=== PATIENT | female | born 1925 | race Caucasian/White ===

== ENCOUNTER 2016-09-20 14:47 | Inpatient (IN) | payer MEDICARE, OTHER ==
[~2016-09-20] VITALS: Ht 152.4 cm; Wt 44.0 kg
[2016-09-20] MEDS ORDERED: IV NS 0.9% 1,000 ML BAG IV ONE (15:00)
[2016-09-20] MEDS ORDERED: IV NS 0.9% 2,000 ML ONE (15:00)
[2016-09-20] MEDS ORDERED: IV SET PRIMARY PUMP SET 1 EA INFUS.SET MC ONE ×3 (15:00→21:34)
[2016-09-20 15:21] LABS: BASOPHILS # (AUTO) 0.2 /CMM (0.0-0.2); BASOPHILS % (AUTO) 1.8 % (0.0-2.0); DIFF TOTAL % 100 %; EOSINOPHILS # (AUTO) 0.5 /CMM (0.0-0.7); EOSINOPHILS % (AUTO) 3.9 % (0.0-6.0); HEMATOCRIT 42 % (33-45); HEMOGLOBIN 14.2 g/dL (11.5-14.8); LYMPHOCYTES # (AUTO) 2.4 /CMM (0.8-4.8); LYMPHOCYTES % (AUTO) 17.6 % (20.0-44.0); MEAN CORPUSCULAR HEMOGLOBIN 31 PG (26.0-33.0); MEAN CORPUSCULAR HGB CONC 34 g/dl (31.0-36.0); MEAN CORPUSCULAR VOLUME 91 fL (82-100); MONOCYTES # (AUTO) 0.7 /CMM (0.1-1.30); MONOCYTES % (AUTO) 4.8 % (2.0-12.0); NEUTROPHILS % (AUTO) 71.9 % (43.0-81.0); PLATELET COUNT (AUTO) 455 /CMM (150-450); RED BLOOD CELL COUNT(AUTO) 4.64 MIL/uL (4.0-5.2); WHITE BLOOD COUNT (AUTO) 13.8 K/uL (4.3-11.0)
[2016-09-20 15:33] LABS: ANION GAP 16 (5-14); CARBON DIOXIDE 30 mmol/L (21-32); CHLORIDE 98 mmol/L (98-107); GLUCOSE 104 mg/dL (74-106); POTASSIUM 4.3 mmol/L (3.5-5.1); SODIUM SERUM 139 mmol/L (136-145); UREA NITROGEN, BLOOD 28 mg/dL (7-18)
[2016-09-20 15:36] LABS: INR 0.97 (0.87-1.13); PROTHROMBIN TIME 10.2 SECS (9.5-12.7)
[2016-09-20 15:39] LABS: ALANINE AMINOTRANSFERASE 22 U/L (12-78); ALBUMIN 3.8 g/dL (3.4-5.0); ASPARTATE AMINOTRANSFERASE 25 U/L (15-37); BILIRUBIN,DIRECT 0.1 mg/dL (0.0-0.2); BILIRUBIN,TOTAL 0.3 mg/dL (0.2-1.0); INDIRECT BILIRUBIN 0.2 mg/dL (0.0-1.1); TOTAL PROTEIN, SERUM 8.2 g/dL (6.4-8.2)
[2016-09-20 15:47] LABS: TROPONIN I < 0.017 ng/mL (0.00-0.056)
[2016-09-20 15:52] LABS: ADD UA MICROSCOPIC NO; KETONES,URINE Negative (NEGATIVE); LEUKOCYTE ESTERASE ,URINE Negative (NEGATIVE)
[2016-09-20 16:09] LABS: LACTIC ACID 3.5 mmol/L (0.4-2.0)
[2016-09-20 16:17] LABS: *LACTIC ACID REFLEX FLAG YES
[2016-09-20] MEDS ORDERED: PIPERACILLIN /TAZOBACTAM 3.375 G in IV D5W 50 ML IV ONE (16:30)
[2016-09-20] MEDS ORDERED: VANCOMYCIN 1 GM in IV D5W 250 ML IV ONE (16:30)
[2016-09-20] MEDS ORDERED: SIMV20TA2 PO (16:38)
[2016-09-20] MEDS ORDERED: CRAN425C PO (16:38)
[2016-09-20] MEDS ORDERED: FENO145T PO (16:38)
[2016-09-20] MEDS ORDERED: MULT1TAB11 PO (16:38)
[2016-09-20] MEDS ORDERED: CALC-167 PO (16:38)
[2016-09-20] MEDS ORDERED: METF-835 PO (16:38)
[2016-09-20] MEDS ORDERED: ALEN70TA3 PO (16:44)
[2016-09-20] MEDS ORDERED: GLIP10TA11 PO (16:44)
[2016-09-20] MEDS ORDERED: LISI-607 PO (16:44)
[2016-09-20] MEDS ORDERED: AMIN30LI25 PO (16:44)
[2016-09-20] MEDS ORDERED: LIDO30AD10 TP (16:44)
[2016-09-20] MEDS ORDERED: FURO-145 PO (16:44)
[2016-09-20] MEDS ORDERED: INSU100V10 SQ (16:46)
[2016-09-20] MEDS ORDERED: GLUC1VIA IM (16:56)
[2016-09-20] MEDS ORDERED: ACET325T53 PO (16:56)
[2016-09-20] MEDS ORDERED: ACET-2030 PO (16:56)
[2016-09-20] MEDS ORDERED: ACET-73 PO (16:56)
[2016-09-20] MEDS ORDERED: CRAN3875 PO (16:56)
[2016-09-20] MEDS ORDERED: MAGN400O6 PO (17:03)
[2016-09-20] MEDS ORDERED: DOCU-25 PO (17:03)
[2016-09-20] MEDS ORDERED: ZINC220C6 PO (17:03)
[2016-09-20] MEDS ORDERED: ASCO-340 PO (17:03)
[2016-09-20] MEDS ORDERED: NA P133E RC (17:03)
[2016-09-20] MEDS ORDERED: BISA10SU8 RC (17:03)
[2016-09-20] MEDS ORDERED: MAG HYDROX/AL HYDROX/SIMETH 30 ML UDC PO PRN (19:00)
[2016-09-20] MEDS ORDERED: MAGNESIUM HYDROXIDE 30 ML UDC PO PRN (19:00)
[2016-09-20] MEDS ORDERED: ACETAMINOPHEN 325 MG TABLET PO PRN (19:00)
[2016-09-20] MEDS ORDERED: ONDANSETRON HCL/PF 4 MG/2 ML VIAL IVP PRN (19:00)
[2016-09-20] MEDS ORDERED: ZOLPIDEM TARTRATE 5 MG TABLET PO PRN (19:00)
[2016-09-20] MEDS ORDERED: BISACODYL SUPP (10 MG) 10 MG/SUPP.RECT SUPP.RECT RC PRN (19:00)
[2016-09-20] MEDS ORDERED: Z GUARD REMEDY 2 OZ OINT TP PRN (19:00)
[2016-09-20 20:00] VITALS: BP 145/59
[2016-09-20] MEDS ORDERED: FEE PK DOSING 1 MIN EA MC ONE (20:18)
[2016-09-20] MEDS ORDERED: PIPERACILLIN /TAZOBACTAM 4.5 G in IV D5W 50 ML IV SCH (21:00)
[2016-09-20] MEDS: METRONIDAZOLE 500MG/ NS 100ML 500 MG in PREMIX 1 EA IV SCH (21:30)
[2016-09-20] MEDS ORDERED: SECONDARY IV SET 1 EA INFUS.SET MC ONE (21:34)
[2016-09-20] MEDS: IV 1/2NS 1000 ML 1,000 ML IV PRN (21:37)
[2016-09-20] MEDS: ENOXAPARIN SODIUM 40 MG/0.4 ML DISP.SYRIN SQ SCH (21:39)
[2016-09-20] MEDS: SIMVASTATIN 20 MG TABLET PO SCH (21:44)
[2016-09-20] MEDS ORDERED: DOCUSATE SODIUM 100 MG CAPSULE PO SCH (22:00)
[2016-09-20] MEDS: HYDROCODONE/APAP 5/325MG 1 EACH TABLET PO PRN (22:11)
[2016-09-20] MEDS: PIPERACILLIN /TAZOBACTAM 3.375 G in IV D5W 50 ML IV SCH (22:28)
[2016-09-20] MEDS ORDERED: LIDOCAINE 5% (PATCH) 1 EA PATCH TP ONE (22:35)
[2016-09-20] MEDS: LIDOCAINE 5% (PATCH) 1 EA PATCH TP SCH (22:44)
[2016-09-21] VITALS: BP 120/62
[2016-09-21] MEDS: HYDROCODONE/APAP 5/325MG 1 EACH TABLET PO PRN ×2 (05:18→06:59)
[2016-09-21] MEDS: METRONIDAZOLE 500MG/ NS 100ML 500 MG in PREMIX 1 EA IV SCH ×3 (05:18→21:57)
[2016-09-21] MEDS ORDERED: diphenhydrAMINE HCL/ZINC ACET CREAM 28.3 GM TUBE TP PRN (05:30)
[2016-09-21] MEDS: PIPERACILLIN /TAZOBACTAM 3.375 G in IV D5W 50 ML IV SCH ×3 (06:23→17:02)
[2016-09-21 06:59] VITALS: BP 141/63
[2016-09-21 07:56] LABS: BASOPHILS % (AUTO) 0.2 % (0.0-2.0); DIFF TOTAL % 100 %; EOSINOPHILS # (AUTO) 0.3 /CMM (0.0-0.7); EOSINOPHILS % (AUTO) 2.5 % (0.0-6.0); HEMATOCRIT 32 % (33-45); HEMOGLOBIN 10.6 g/dL (11.5-14.8); LYMPHOCYTES # (AUTO) 2.1 /CMM (0.8-4.8); LYMPHOCYTES % (AUTO) 16.6 % (20.0-44.0); MEAN CORPUSCULAR HEMOGLOBIN 31 PG (26.0-33.0); MEAN CORPUSCULAR HGB CONC 33 g/dl (31.0-36.0); MEAN CORPUSCULAR VOLUME 93 fL (82-100); MONOCYTES # (AUTO) 1.1 /CMM (0.1-1.30); MONOCYTES % (AUTO) 8.7 % (2.0-12.0); NEUTROPHILS # (AUTO) 9.3 /CMM (1.8-8.9); PLATELET COUNT (AUTO) 383 /CMM (150-450); RED BLOOD CELL COUNT(AUTO) 3.43 MIL/uL (4.0-5.2); WHITE BLOOD COUNT (AUTO) 12.9 K/uL (4.3-11.0)
[2016-09-21 08:00] VITALS: BP 141/63
[2016-09-21 08:05] LABS: CALCIUM, SERUM 8.4 mg/dL (8.5-10.1); PHOSPHORUS 3.5 mg/dL (2.5-4.9); POTASSIUM 3.9 mmol/L (3.5-5.1)
[2016-09-21] MEDS: ZINC SULFATE 220 MG CAPSULE PO SCH (08:18)
[2016-09-21] MEDS: METFORMIN 500 MG TABLET PO SCH ×2 (08:19→17:02)
[2016-09-21] MEDS: FENOFIBRATE NANOCRYS (145 MG) 145 MG TABLET PO SCH (08:19)
[2016-09-21] MEDS: LISINOPRIL (5MG) 5 MG TABLET PO SCH (08:19)
[2016-09-21] MEDS: PANTOPRAZOLE 40 MG TABLET.DR PO SCH (08:19)
[2016-09-21] MEDS: LIDOCAINE 5% (PATCH) 1 EA PATCH TP SCH (08:26)
[2016-09-21 09:07] LABS: THYROID STIMULATING HORMONE 1.294 uIU/mL (0.358-3.74)
[2016-09-21] MEDS ORDERED: SECONDARY IV SET 1 EA INFUS.SET MC ONE (10:04)
[2016-09-21] MEDS ORDERED: VANCOMYCIN 1 GM in IV D5W 250 ML IV SCH (11:00)
[2016-09-21 11:54] LABS: IRON, SERUM 35 ug/dl (50-175); PERCENT SATURATION 15 % (14-33); TOTAL IRON BINDING CAPACITY 232 ug/dl (250-450)
[2016-09-21 12:01] LABS: TROPONIN I < 0.017 ng/mL (0.00-0.056)
[2016-09-21] MEDS: ASPIRIN 81 MG TAB.CHEW PO SCH (12:04)
[2016-09-21] MEDS: CARVEDILOL 6.25 MG TABLET PO SCH ×2 (12:05→22:02)
[2016-09-21] MEDS ORDERED: IV SET PRIMARY PUMP SET 1 EA INFUS.SET MC ONE (12:25)
[2016-09-21] MEDS: Magnesium 1GM/D5W 100ML PREMIX 100 ML IV SCH ×4 (12:29→15:29)
[2016-09-21] MEDS ORDERED: GUAIFENESIN LA 600 MG TABLET.SA PO PRN (15:30)
[2016-09-21 16:00] VITALS: BP 119/53
[2016-09-21] MEDS ORDERED: DEXTROSE 50%-WATER 50 ML DISP.SYRIN IV PRN (17:00)
[2016-09-21] MEDS ORDERED: INSULIN REGULAR, HUMAN 100 UNIT/ML 3 ML VIAL SQ PRN (17:00)
[2016-09-21] MEDS: BLOOD SUGAR DIAGNOSTIC 1 EACH STRIP IN SCH ×2 (17:02→22:04)
[2016-09-21] MEDS: BOOST PLUS FOOD-CHOCLATE 237 ML BOX PO SCH (17:03)
[2016-09-21] MEDS: IV 1/2NS 1000 ML 1,000 ML IV PRN (17:03)
[2016-09-21] MEDS: GUAIFENESIN 300 MG/15 ML UDC PO PRN (17:21)
[2016-09-21] MEDS ORDERED: BISACODYL (5 MG) 5 MG TABLET.DR PO PRN (18:00)
[2016-09-21] MEDS: DOCUSATE SODIUM 100 MG CAPSULE PO SCH (18:14)
[2016-09-21 20:00] VITALS: BP 116/47
[2016-09-21] MEDS: ENOXAPARIN SODIUM 40 MG/0.4 ML DISP.SYRIN SQ SCH (22:13)
[2016-09-21] MEDS: SIMVASTATIN 20 MG TABLET PO SCH (22:16)
[2016-09-22] MEDS: PIPERACILLIN /TAZOBACTAM 3.375 G in IV D5W 50 ML IV SCH ×3 (00:26→12:11)
[2016-09-22] MEDS: METRONIDAZOLE 500MG/ NS 100ML 500 MG in PREMIX 1 EA IV SCH ×2 (05:32→13:50)
[2016-09-22] MEDS: BLOOD SUGAR DIAGNOSTIC 1 EACH STRIP IN SCH ×4 (06:49→23:14)
[2016-09-22 07:12] LABS: BASOPHILS % (AUTO) 0.5 % (0.0-2.0); DIFF TOTAL % 100 %; EOSINOPHILS # (AUTO) 0.6 /CMM (0.0-0.7); EOSINOPHILS % (AUTO) 7.1 % (0.0-6.0); HEMATOCRIT 31 % (33-45); HEMOGLOBIN 10.3 g/dL (11.5-14.8); LYMPHOCYTES # (AUTO) 2.6 /CMM (0.8-4.8); LYMPHOCYTES % (AUTO) 31.8 % (20.0-44.0); MEAN CORPUSCULAR HEMOGLOBIN 31 PG (26.0-33.0); MEAN CORPUSCULAR HGB CONC 33 g/dl (31.0-36.0); MEAN CORPUSCULAR VOLUME 94 fL (82-100); MONOCYTES # (AUTO) 0.7 /CMM (0.1-1.30); NEUTROPHILS # (AUTO) 4.4 /CMM (1.8-8.9); NEUTROPHILS % (AUTO) 52.6 % (43.0-81.0); PLATELET COUNT (AUTO) 341 /CMM (150-450); RED BLOOD CELL COUNT(AUTO) 3.33 MIL/uL (4.0-5.2); WHITE BLOOD COUNT (AUTO) 8.3 K/uL (4.3-11.0)
[2016-09-22 07:37] LABS: CALCIUM, SERUM 8.3 mg/dL (8.5-10.1); CREATININE 1.1 mg/dL (0.6-1.3); POTASSIUM 3.9 mmol/L (3.5-5.1)
[2016-09-22 08:00] VITALS: BP 114/89
[2016-09-22] MEDS: ZINC SULFATE 220 MG CAPSULE PO SCH (09:28)
[2016-09-22] MEDS: CARVEDILOL 6.25 MG TABLET PO SCH ×2 (09:28→23:11)
[2016-09-22] MEDS: PANTOPRAZOLE 40 MG TABLET.DR PO SCH (09:28)
[2016-09-22] MEDS: ASPIRIN 81 MG TAB.CHEW PO SCH (09:28)
[2016-09-22] MEDS: DOCUSATE SODIUM 100 MG CAPSULE PO SCH ×3 (09:28→17:06)
[2016-09-22] MEDS: LISINOPRIL (5MG) 5 MG TABLET PO SCH (09:28)
[2016-09-22] MEDS: METFORMIN 500 MG TABLET PO SCH ×2 (09:28→17:00)
[2016-09-22] MEDS: FENOFIBRATE NANOCRYS (145 MG) 145 MG TABLET PO SCH (09:28)
[2016-09-22] MEDS: LIDOCAINE 5% (PATCH) 1 EA PATCH TP SCH (09:29)
[2016-09-22] MEDS: BOOST PLUS FOOD-CHOCLATE 237 ML BOX PO SCH ×2 (09:32→16:05)
[2016-09-22] MEDS: GUAIFENESIN 300 MG/15 ML UDC PO PRN (15:26)
[2016-09-22 16:00] VITALS: BP 136/47
[2016-09-22] MEDS ORDERED: LEVOFLOXACIN (250MG) 250 MG TABLET PO SCH (16:00)
[2016-09-22] MEDS: MUPIROCIN OINT 2% 22 GM TUBE SCH ×2 (17:11→23:09)
[2016-09-22] MEDS ORDERED: SECONDARY IV SET 1 EA INFUS.SET MC ONE (17:43)
[2016-09-22] MEDS ORDERED: LEVOFLOXACIN 250 MG /D5W 50 ML 250 MG in PREMIX 1 EA IV SCH (18:00)
[2016-09-22] MEDS: ACETAMINOPHEN 650 MG/SUPP.RECT RC PRN (18:06)
[2016-09-22 20:00] VITALS: BP_SYST 140; BP_DIAS 59; BP_DIAS 69
[2016-09-22] MEDS ORDERED: MUPIROCIN OINT 2% 22 GM TUBE SCH (21:00)
[2016-09-22] MEDS ORDERED: IV NS 0.9% 250 ML IV ONE (21:49)
[2016-09-22] MEDS: DOXYCYCLINE 100 MG in IV D5W 100 ML IV SCH (23:08)
[2016-09-22] MEDS: METRONIDAZOLE 500 MG TABLET PO SCH (23:11)
[2016-09-22] MEDS: SIMVASTATIN 20 MG TABLET PO SCH (23:11)
[2016-09-22] MEDS: ENOXAPARIN SODIUM 40 MG/0.4 ML DISP.SYRIN SQ SCH (23:13)
[2016-09-23 04:00] VITALS: BP 145/79
[2016-09-23] MEDS: METRONIDAZOLE 500 MG TABLET PO SCH ×2 (07:08→12:36)
[2016-09-23] MEDS: BLOOD SUGAR DIAGNOSTIC 1 EACH STRIP IN SCH ×2 (07:08→12:36)
[2016-09-23 08:00] VITALS: BP 167/95
[2016-09-23 08:09] LABS: CALCIUM, SERUM 8.3 mg/dL (8.5-10.1); POTASSIUM 4.7 mmol/L (3.5-5.1)
[2016-09-23] MEDS: DOCUSATE SODIUM 100 MG CAPSULE PO SCH (08:14)
[2016-09-23] MEDS: LIDOCAINE 5% (PATCH) 1 EA PATCH TP SCH (08:14)
[2016-09-23] MEDS: BOOST PLUS FOOD-CHOCLATE 237 ML BOX PO SCH (08:14)
[2016-09-23] MEDS: PANTOPRAZOLE 40 MG TABLET.DR PO SCH (08:15)
[2016-09-23] MEDS: ZINC SULFATE 220 MG CAPSULE PO SCH (08:15)
[2016-09-23] MEDS: FENOFIBRATE NANOCRYS (145 MG) 145 MG TABLET PO SCH (08:15)
[2016-09-23] MEDS: METFORMIN 500 MG TABLET PO SCH (08:15)
[2016-09-23] MEDS: CARVEDILOL 6.25 MG TABLET PO SCH (08:16)
[2016-09-23] MEDS: ASPIRIN 81 MG TAB.CHEW PO SCH (08:17)
[2016-09-23] MEDS: LISINOPRIL (5MG) 5 MG TABLET PO SCH (08:18)
[2016-09-23] MEDS: MUPIROCIN OINT 2% 22 GM TUBE SCH (08:19)
[2016-09-23] MEDS: DOXYCYCLINE 100 MG in IV D5W 100 ML IV SCH (08:20)
[2016-09-23] MEDS ORDERED: ACET650S11 RC (13:26)
[2016-09-23] MEDS ORDERED: CLONIDINE HCL 0.2MG/24H PTWK 1 EA PATCH TD SCH (14:30)
[2016-09-23] MEDS: ACETAMINOPHEN 650 MG/SUPP.RECT RC PRN (16:25)
[2016-09-23 18:47] VITALS: BP 159/89
[2016-09-24] MEDS ORDERED: LISINOPRIL (5MG) 5 MG TABLET PO SCH (09:00)
== END 2016-09-23 17:35 | DRG 871 ==
LOC: ER 14:48 → TELE 17:13 → MED 09-21 13:20
DX: A41.9 Sepsis, unspecified organism (principal); J69.0 Pneumonitis due to inhalation of food and vomit; G93.40 Encephalopathy, unspecified; E87.2 Acidosis; E11.9 Type 2 diabetes mellitus without complications; E78.5 Hyperlipidemia, unspecified; L89.159 Pressure ulcer of sacral region, unspecified stage; F03.90 Unspecified dementia, unspecified severity, without behavioral disturbance, psychotic disturbance, mood disturbance, and anxiety; I25.2 Old myocardial infarction; I10 Essential (primary) hypertension; I25.10 Atherosclerotic heart disease of native coronary artery without angina pectoris; E86.0 Dehydration; E83.42 Hypomagnesemia; D64.9 Anemia, unspecified; K56.41 Fecal impaction; K52.9 Noninfective gastroenteritis and colitis, unspecified; L29.9 Pruritus, unspecified; Z86.73 Personal history of transient ischemic attack (TIA), and cerebral infarction without residual deficits
CPT/HCPCS: 36415; 71010-TC; 80048-TC; 80061-TC; 80076-TC; 80202-TC; 81000-TC; 82306; 82728-TC; 82962-TC; 83540-TC; 83605-TC; 83735-TC; 83880; 84100-TC; 84439-TC; 84443-TC; 84484-TC; 85025-TC; 85730-TC; 87040-TC; 87081-TC; 87086-TC; 92526; 92611-TC; 93307-TC; 94799-TC; 97001-TC; A4216; A4606; J1650; J1815; J1956; J2405; J2543; J3370; J3475; J3490; J7030; J7050; J7060; Z7610